=== PATIENT | female | born 1955 | race American Indian/Alaskan Native ===

== ENCOUNTER 2017-02-26 21:05 | Emergency (ER) | payer MEDICAID ==
--- NOTE | 2017-02-26 21:52 | Emergency Department Report ---
ED CPR HPI - General Chief Complaint: Cardiac Arrest/CPR Stated Complaint: CARDIAC ARREST Time Seen by Provider: 02/26/17 21:25 Source: family, EMS (verbal report received from EMS.ems notes not available at time of chart dictation) Mode of arrival: Stretcher Limitations: Other (patient is intubated, and is actively receiving chest compressions) - History of Present Illness Initial Comments: This is a 61-year-old female. She is previously unknown to me. She is brought to the hospital by EMS for out of hospital cardiac arrest. EMS verbal report of the initial presenting rhythm was pulseless electrical activity. They report that the patient was intubated in the field. They gave the patient one round of epinephrine. They did not perform a fingerstick. They report that the patient was pulseless for at least 15-20 minutes prior to arrival to the ER. Upon arrival to the ER, the patient remained pulseless, her pupils were midpoint and nonreactive, and no cord any cardiac activity can be obtained on bedside ultrasound. The patient received standard ACLS interventions, including epinephrine, and continued high-quality CPR/chest compressions. Unfortunately, pulses cannot be obtained. Resuscitation efforts were terminated secondary to medical futility. The family is informed. MD Complaint: stopped breathing -: minute(s) Bystander CPR Performed: No AED Applied by Bystander/Time Clock Inspector: No Initial Findings in the Field: PEA Treatments Prior to Arrival: intubation, chest compressions, epinephrine mgs # ED Review of Systems ROS: Stated complaint: CARDIAC ARREST Other details as noted in HPI ED Past Medical Hx - Past Medical History Previous Medical History?: Yes Hx Diabetes: Yes Hx Seizures: Yes Additional medical history: MS - Surgical History Past Surgical History?: No - Social History Smoking Status: Never Smoker Substance Use Type: None ED Physical Exam - General Limitations: Other (patient intubated, GCS of 3) General appearance: other (intubated, nonverbal) - Eye Eye exam: Present: other (pupils are midpoint and do not react to light) - ENT ENT exam: Present: other (endotracheal tube noted in the oropharynx) - Neck Neck exam: Present: normal inspection - Respiratory Respiratory exam: Present: other (no breath sounds unless the patient receives [id number] ventilation) - Cardiovascular Cardiovascular Exam: Present: other (no pulses appreciated) - GI/Abdominal GI/Abdominal exam: Present: soft - External exam: Present: normal external exam - Extremities Exam Extremities exam: Present: normal inspection - Back Exam Back exam: Present: normal inspection - Neurological Exam Neurological exam: Present: other (intubated, GCS of 3) - Psychiatric Psychiatric exam: Present: other (nonverbal) - Skin Skin exam: Present: dry Critical care attestation.: If time is entered above; I have spent that time in minutes in the direct care of this critically ill patient, excluding procedure time. ED Disposition Clinical Impression: Cardiac arrest Disposition: DC-20 Is pt being admited?: No Does the pt Need Aspirin: No Condition: Undetermined Referrals: PRIMARY CARE, [Primary Care Provider] - 3-5 Days
== END 2017-02-27 01:35 ==
LOC: ED 21:05
DX: I46.9 Cardiac arrest, cause unspecified (principal); E11.9 Type 2 diabetes mellitus without complications; R56.9 Unspecified convulsions
CPT/HCPCS: 82962; 92950